=== PATIENT | female | born 1965 | race African-American/Black ===

== ENCOUNTER 2023-07-16 10:36 | Day surgery (SDC) | payer OTHER ==
[2023-06-24 14:02] VITALS: BMI 26.1
[2023-07-16] MEDS ORDERED: PROPOFOL 100 ML ONE (11:18)
[2023-07-16 12:00] VITALS: PULSE 84; RESP 16; TEMP 97.3
[2023-07-16 12:14] VITALS: BP 127/76
== END 2023-07-16 12:27 | disposition home or self-care (01) ==
LOC: FASU-ENDO 10:36
PROVIDERS: ATTEND Internal Medicine Gastroenterology
PROC: 0DB68ZX Excision of Stomach, Via Natural or Artificial Opening Endoscopic, Diagnostic (ICD-10-PCS; 2023-07-16)
PROC: 0DB48ZX Excision of Esophagogastric Junction, Via Natural or Artificial Opening Endoscopic, Diagnostic (ICD-10-PCS; 2023-07-16)
PROC: 0DB98ZX Excision of Duodenum, Via Natural or Artificial Opening Endoscopic, Diagnostic (ICD-10-PCS; principal; 2023-07-16 11:35)
DX: K29.50 Unspecified chronic gastritis without bleeding (principal); K20.90 Esophagitis, unspecified without bleeding; R10.13 Epigastric pain
CPT/HCPCS: 88305-TC; 88342-TC

== ENCOUNTER 2024-09-05 12:16 | Day surgery (SDC) | payer OTHER ==
[2024-09-05 12:45] LABS: ABSOLUTE IMMATURE GRANULOCYTES 0.02 x10^3/uL (0.0-0.031); BASOPHILS # 0.05 x10^3/uL (0.01-0.08); EOSINOPHIL % 8.1 % (0.7-5.8); EOSINOPHILS # 0.45 x10^3/uL (0.04-0.36); MCHC 29.8 g/dl (32.2-35.5); MEAN CELL VOLUME 92.2 fl (79.4-94.8); MEAN PLT VOLUME 11.6 fl (9.4-12.3); MONOCYTE # 0.72 x10^3/uL (0.24-0.86); MONOCYTE % 12.9 % (4.7-12.5); RDW 16.2 % (12.3-16.6)
[2024-09-05] MEDS ORDERED: HEPARIN NA (PORCINE) 5,000 UNITS/ML 1ML VIAL ONE (12:51)
[2024-09-05 12:52] LABS: INR 1.12 (0.83-1.09); PROTHROMBIN TIME (PATIENT) 12.2 SEC (9.7-13.0)
[2024-09-05] MEDS ORDERED: FENTANYL CITRATE/PF 50 MCG/ML VIAL ONE (13:09)
[2024-09-05] MEDS ORDERED: MIDAZOLAM HCL 2 MG/2 ML SINGLE DOSE VIAL ONE (13:09)
[2024-09-05 13:15] LABS: CO2 32 mmol/L (21-32); GLUCOSE,RANDOM 97 mg/dL (74-106)
[2024-09-05] MEDS: MIDAZOLAM HCL 2 MG/2 ML SINGLE DOSE VIAL IVPUSH ONE (13:17)
[2024-09-05 13:18] LABS: SGOT/AST 16 U/L (15-37); SGPT/ALT 26 U/L (13-61)
[2024-09-05] MEDS: FENTANYL CITRATE/PF 50 MCG/ML VIAL IVPUSH ONE (13:18)
[2024-09-05 13:19] LABS: CREATININE 7.8 mg/dL (0.55-1.3)
[2024-09-05 13:20] LABS: TOT PROT 5.7 g/dl (6.4-8.2)
[2024-09-05 13:21] LABS: ALK PHOS 87 U/L (45-117)
[2024-09-05 13:41] VITALS: TEMP 97.8
[2024-09-05 14:04] VITALS: BP 158/89; PULSE 67; RESP 15
== END 2024-09-05 14:17 | disposition home or self-care (01) ==
LOC: JRADIR 12:16
PROVIDERS: ATTEND Surgery
PROC: 057F3DZ Dilation of Left Cephalic Vein with Intraluminal Device, Percutaneous Approach (ICD-10-PCS; principal; 2024-09-05)
DX: T82.858A Stenosis of other vascular prosthetic devices, implants and grafts, initial encounter (principal); N18.6 End stage renal disease; Z99.2 Dependence on renal dialysis
CPT/HCPCS: 36415; 37248; 76000-TC-FY; 80053; 85025; 85610; C1725; C1769; C1894